=== PATIENT | female | born 1940 | race Hispanic/Latino ===

== ENCOUNTER 2021-01-25 20:22 | Observation (INO) | payer MEDICARE ==
[2021-01-26 01:14] VITALS: BMI 22.8
[2021-01-26] MEDS ORDERED: Acetaminophen 325 MG TAB PO PRN (01:18)
[2021-01-26] MEDS ORDERED: Ondansetron PF 4 MG/2 ML Vial IVP PRN (01:18)
[2021-01-26] MEDS ORDERED: Ondansetron ODT 4 MG TAB PO PRN (01:18)
[2021-01-26] MEDS ORDERED: Acetaminophen 650 MG Suppository PR PRN (01:18)
[2021-01-26] MEDS ORDERED: hydrALAZINE 20 MG/ML VIAL SLOW IVP PRN (01:26)
[2021-01-26 02:23] LABS: Anion Gap 12 mmol/L (10-20); BUN (Urea Nitrogen) 13 mg/dL (9.8-20.1); Calc. Creatinine Clearance 41 mL/min (70-130); Carbon Dioxide 26 mmol/L (23-31); Chloride 98 mmol/L (98-107); Glucose 107 mg/dL (83-110); Potassium 3.8 mmol/L (3.5-5.1); Sodium 132 mmol/L (136-145)
[2021-01-26 05:23] LABS: Anion Gap 9 mmol/L (10-20); BUN (Urea Nitrogen) 12 mg/dL (9.8-20.1); Calc. Creatinine Clearance 43 mL/min (70-130); Calcium 9.7 mg/dL (7.8-10.44); Carbon Dioxide 29 mmol/L (23-31); Chloride 100 mmol/L (98-107); Glucose 93 mg/dL (83-110); Potassium 4.1 mmol/L (3.5-5.1); Sodium 134 mmol/L (136-145)
[2021-01-26] MEDS ORDERED: Amlodipine 5 MG TAB PO SCH ×2 (09:00)
[2021-01-26] MEDS: Montelukast Sodium 10 mg Tablet PO SCH (09:32)
[2021-01-26] MEDS: Losartan 25 MG TAB PO SCH (09:32)
[2021-01-26] MEDS ORDERED: NIFEdipine XL 30 MG TAB PO SCH ×2 (11:30→14:51)
[2021-01-26] MEDS ORDERED: Atorvastatin Calcium 10 MG TAB PO SCH (21:00)
[2021-01-27 08:25] LABS: Anion Gap 13 mmol/L (10-20); BUN (Urea Nitrogen) 15 mg/dL (9.8-20.1); Calc. Creatinine Clearance 33 mL/min (70-130); Calcium 9.8 mg/dL (7.8-10.44); Carbon Dioxide 25 mmol/L (23-31); Chloride 95 mmol/L (98-107); Glucose 123 mg/dL (83-110); Potassium 3.7 mmol/L (3.5-5.1); Sodium 129 mmol/L (136-145)
[2021-01-27] MEDS ORDERED: Lactated Ringer's 500 ML IV SCH (08:30)
[2021-01-27] MEDS ORDERED: NIFEdipine XL 30 MG TAB PO SCH ×2 (09:00)
[2021-01-27] MEDS: Montelukast Sodium 10 mg Tablet PO SCH (09:32)
[2021-01-27] MEDS: Losartan 25 MG TAB PO SCH (09:32)
[2021-01-27 12:41] LABS: Anion Gap 14 mmol/L (10-20); BUN (Urea Nitrogen) 16 mg/dL (9.8-20.1); Calc. Creatinine Clearance 36 mL/min (70-130); Carbon Dioxide 23 mmol/L (23-31); Chloride 94 mmol/L (98-107); Glucose 104 mg/dL (83-110); Potassium 3.9 mmol/L (3.5-5.1); Sodium 127 mmol/L (136-145)
[2021-01-27] MEDS ORDERED: Lactated Ringer's 1,000 ML IV SCH (13:30)
[2021-01-27 16:44] LABS: Anion Gap 13 mmol/L (10-20); BUN (Urea Nitrogen) 17 mg/dL (9.8-20.1); Calc. Creatinine Clearance 38 mL/min (70-130); Calcium 9.7 mg/dL (7.8-10.44); Carbon Dioxide 25 mmol/L (23-31); Chloride 97 mmol/L (98-107); Glucose 115 mg/dL (83-110); Potassium 3.7 mmol/L (3.5-5.1); Sodium 131 mmol/L (136-145)
[2021-01-27 18:35] VITALS: BP 130/61; TEMP 97.7
== END 2021-01-27 18:38 | disposition home or self-care (01) ==
LOC: 2NO 20:22 → INTOOBSV 20:22
PROVIDERS: ADMIT Student in an Organized Health Care Education/Training Program; ATTEND Student in an Organized Health Care Education/Training Program
DX: E87.1 Hypo-osmolality and hyponatremia (principal); I16.0 Hypertensive urgency; I10 Essential (primary) hypertension; D53.9 Nutritional anemia, unspecified; J44.9 Chronic obstructive pulmonary disease, unspecified; E78.5 Hyperlipidemia, unspecified; Z66 Do not resuscitate; Z79.899 Other long term (current) drug therapy
CPT/HCPCS: 80048 ×4; 83930; 83935; 84133; 84300; 84443; 96374; G0378 ×2; 36415; J0360; J7120

== ENCOUNTER 2021-06-28 15:14 | Observation (INO) | payer MEDICARE ==
[2021-06-28 15:44] LABS: #Eosinphils 0.1 thou/uL (0.0-0.7); #Lymphocytes 1.3 thou/uL (1.20-3.40); #Monocytes 0.8 thou/uL (0.11-0.59); #Neutrophils 5.2 thou/uL (1.40-6.50); %Basophils 0.5 % (0.0-1.0); %Eosinophils 1.3 % (0.0-10.0); %Lymphocytes 17.3 % (21.0-51.0); %Monocytes 10.8 % (0.0-10.0); Hemoglobin 13.1 g/dL (12.0-16.0); Mean Corpuscular HGB CONC 33.2 g/dL (32.0-36.0); Mean Corpuscular Hemoglobin 33.9 pg (27.0-31.0); Mean Platelet Volume 5.5 fL (7.4-10.4); Platelet Count 395 thou/uL (130-400); RBC Distribution Width 11.8 % (11.5-14.5); Red Blood Cell (RBC) Count 3.88 mill/uL (4.20-5.40); White Blood Cell (WBC) Count 7.4 thou/uL (4.8-10.8)
[2021-06-28] MEDS ORDERED: Nitroglycerin 2% Ointment 1 INCH/1 GM Packet ONE (15:46)
[2021-06-28 16:06] LABS: ALT (SGPT) 16 U/L (8-55); AST (SGOT) 25 U/L (5-34); Albumin 4.4 g/dL (3.4-4.8); Alkaline Phosphatase 82 U/L (40-110); Anion Gap 14 mmol/L (10-20); BUN (Urea Nitrogen) 8 mg/dL (9.8-20.1); Bilirubin, Total 0.3 mg/dL (0.2-1.2); Calc. Creatinine Clearance 0 mL/min (70-130); Calcium 9.8 mg/dL (7.8-10.44); Carbon Dioxide 24 mmol/L (23-31); Chloride 96 mmol/L (98-107); Globulin 3.7 g/dL (2.4-3.5); Glucose 109 mg/dL (83-110); Potassium 4.2 mmol/L (3.5-5.1); Protein, Total 8.1 g/dL (5.8-8.1); Sodium 130 mmol/L (136-145)
[2021-06-28] MEDS ORDERED: Acetaminophen 325 MG TAB PO PRN (18:36)
[2021-06-28] MEDS ORDERED: Ondansetron PF 4 MG/2 ML Vial IVP PRN (18:36)
[2021-06-28] MEDS ORDERED: Nitroglycerin 0.4 MG TAB (25 Tab Bottle) SL PRN ×2 (18:36→18:56)
[2021-06-28] MEDS ORDERED: Aspirin Chewable 81 MG TAB PO SCH (18:45)
[2021-06-28] MEDS ORDERED: Labetalol HCl 100 MG/20 ML VIAL SLOW IVP PRN (18:55)
[2021-06-28 19:22] LABS: Troponin I 0.023 ng/mL (< 0.028)
[2021-06-28 20:31] VITALS: BMI 18.9
[2021-06-28] MEDS: Atorvastatin Calcium 10 MG TAB PO SCH (21:04)
[2021-06-28] MEDS: hydrALAZINE 20 MG/ML VIAL SLOW IVP PRN (21:04)
[2021-06-28 22:54] LABS: Troponin I 0.038 ng/mL (< 0.028)
[2021-06-28] MEDS ORDERED: Montelukast Sodium 10 mg Tablet PO SCH (23:00)
[2021-06-28] MEDS ORDERED: NIFEdipine XL 30 MG TAB PO SCH (23:00)
[2021-06-28] MEDS ORDERED: NIFEdipine XL 90 MG TAB PO SCH (23:30)
[2021-06-29 04:58] LABS: #Eosinphils 0.1 thou/uL (0.0-0.7); #Lymphocytes 1.4 thou/uL (1.20-3.40); #Monocytes 0.7 thou/uL (0.11-0.59); #Neutrophils 6.1 thou/uL (1.40-6.50); %Basophils 0.6 % (0.0-1.0); %Eosinophils 1.5 % (0.0-10.0); %Monocytes 8.3 % (0.0-10.0); %Neutrophils 72.6 % (42.0-75.0); Hemoglobin 11.8 g/dL (12.0-16.0); Mean Corpuscular HGB CONC 34.3 g/dL (32.0-36.0); Mean Corpuscular Hemoglobin 35.1 pg (27.0-31.0); Mean Platelet Volume 5.4 fL (7.4-10.4); Platelet Count 386 thou/uL (130-400); Red Blood Cell (RBC) Count 3.37 mill/uL (4.20-5.40); White Blood Cell (WBC) Count 8.4 thou/uL (4.8-10.8)
[2021-06-29 05:20] LABS: ALT (SGPT) 13 U/L (8-55); AST (SGOT) 21 U/L (5-34); Albumin 3.6 g/dL (3.4-4.8); Alkaline Phosphatase 61 U/L (40-110); Anion Gap 10 mmol/L (10-20); BUN (Urea Nitrogen) 8 mg/dL (9.8-20.1); Calc. Creatinine Clearance 38 mL/min (70-130); Calcium 9.6 mg/dL (7.8-10.44); Carbon Dioxide 24 mmol/L (23-31); Cardiac Risk 3.5 (Less than 4.5); Chloride 98 mmol/L (98-107); Cholesterol 153 mg/dl (< 200 Desired); Globulin 3.5 g/dL (2.4-3.5); Glucose 108 mg/dL (83-110); HDL Cholesterol 44 mg/dL (>60 Neg Risk); LDL Cholesterol, Calculated 96 mg/dL; Potassium 3.9 mmol/L (3.5-5.1); Protein, Total 7.1 g/dL (5.8-8.1); Sodium 128 mmol/L (136-145); Triglycerides 67 mg/dL (Less than 150)
[2021-06-29 05:21] LABS: Bilirubin, Total 0.4 mg/dL (0.2-1.2)
[2021-06-29] MEDS: Budesonide 0.5 MG/2 ML NEB NEB SCH ×2 (06:50→18:53)
[2021-06-29] MEDS ORDERED: Montelukast Sodium 10 mg Tablet PO SCH ×2 (09:00→21:00)
[2021-06-29] MEDS ORDERED: NIFEdipine XL 30 MG TAB PO SCH ×2 (09:00→21:00)
[2021-06-29] MEDS ORDERED: Regadenoson 0.4 MG/5 ML SYRINGE ONE (09:18)
[2021-06-29] MEDS: Losartan 25 MG TAB PO SCH (09:24)
[2021-06-29] MEDS: Enoxaparin Sodium 30 MG/0.3 ML SYRINGE SC SCH (09:24)
[2021-06-29] MEDS ORDERED: Iopamidol 370 76% 100 ML VIAL ONE (10:21)
[2021-06-29 11:50] LABS: Troponin I 0.024 ng/mL (< 0.028)
[2021-06-29 12:18] LABS: SARS-CoV-2 PCR by NAA Not Detected (NotDetected)
[2021-06-29] MEDS: hydrALAZINE 20 MG/ML VIAL SLOW IVP PRN (18:22)
[2021-06-29] MEDS: Atorvastatin Calcium 10 MG TAB PO SCH (20:10)
[2021-06-29] MEDS ORDERED: NIFEdipine XL 90 MG TAB PO SCH (21:00)
[2021-06-30 05:19] LABS: Anion Gap 14 mmol/L (10-20); BUN (Urea Nitrogen) 14 mg/dL (9.8-20.1); Calc. Creatinine Clearance 27 mL/min (70-130); Calcium 9.8 mg/dL (7.8-10.44); Carbon Dioxide 23 mmol/L (23-31); Chloride 96 mmol/L (98-107); Glucose 108 mg/dL (83-110); Potassium 4.2 mmol/L (3.5-5.1); Sodium 129 mmol/L (136-145)
[2021-06-30 07:34] VITALS: BP 139/61; TEMP 98.2
[2021-06-30] MEDS: Enoxaparin Sodium 30 MG/0.3 ML SYRINGE SC SCH (08:34)
[2021-06-30] MEDS: Losartan 25 MG TAB PO SCH (08:34)
[2021-06-30] MEDS: Budesonide 0.5 MG/2 ML NEB NEB SCH (10:43)
== END 2021-06-30 11:35 | disposition home or self-care (01) ==
LOC: ERS 15:14 → 2SW 18:36
PROVIDERS: ADMIT Internal Medicine; ATTEND Internal Medicine
DX: R07.89 Other chest pain (principal); R06.09 Other forms of dyspnea; I16.0 Hypertensive urgency; I10 Essential (primary) hypertension; E87.1 Hypo-osmolality and hyponatremia; J43.9 Emphysema, unspecified; J84.10 Pulmonary fibrosis, unspecified; E78.5 Hyperlipidemia, unspecified; K21.9 Gastro-esophageal reflux disease without esophagitis; Q25.46 Tortuous aortic arch; Z66 Do not resuscitate; Z79.899 Other long term (current) drug therapy; Z88.7 Allergy status to serum and vaccine; Z20.822 Contact with and (suspected) exposure to COVID-19
CPT/HCPCS: 71045 ×2; 71275; 78452; 80048; 80053 ×2; 80061; 83735; 83880; 84484 ×3; 85025 ×2; 85379; 93005; 93017; 93970; 94640 ×3; 94760; 99285; A9500; U0003; U0005; 36415; 96372; 96374; G0378; J0360; J1650; J2785; J7626; Q9967

== ENCOUNTER 2024-11-15 13:21 | Emergency (ER) | payer MEDICARE ==
[2024-11-15 15:20] LABS: #Basophils 0.04 10x3/uL (0.0-0.2); #Eosinophils 0.04 10x3/uL (0.0-0.7); #Monocytes 0.73 10x3/uL (0.11-0.59); #Neutrophils 7.69 10x3/uL (1.40-6.50); %Basophils 0.4 % (0.0-1.0); %Eosinophils 0.4 % (0.0-10.0); %Lymphocytes 11.3 % (21.0-51.0); %Monocytes 7.6 % (0.0-10.0); %Neutrophils 80.1 % (42.0-75.0); Hematocrit 38.0 % (36.0-47.0); Hemoglobin 13.0 g/dL (12.0-16.0); Mean Corpuscular Hemoglobin 33.4 pg (27.0-31.0); Mean Corpuscular Volume 97.7 fL (78.0-98.0); Platelet Count 325 10x3/uL (130-400); Red Blood Cell (RBC) Count 3.89 mill/uL (4.20-5.40); White Blood Cell (WBC) Count 9.61 10x3/uL (4.8-10.8)
[2024-11-15 15:42] LABS: ALT (SGPT) 16 U/L (Less than 34); AST (SGOT) 32 U/L (11-34); Albumin 4.0 g/dL (3.1-4.5); Alkaline Phosphatase 109 U/L (40-110); Anion Gap 15 mmol/L (10-20); BUN (Urea Nitrogen) 11 mg/dL (9.8-20.1); Bilirubin, Total 0.4 mg/dL (0.3-1.2); Calc. Creatinine Clearance 0 mL/min (70-130); Calcium 10.1 mg/dL (7.8-10.44); Carbon Dioxide 25 mmol/L (23-31); Chloride 93 mmol/L (98-107); Globulin 4.6 g/dL (2.4-3.5); Glucose 119 mg/dL (83-110); Magnesium 2.0 mg/dL (1.6-2.6); Potassium 4.0 mmol/L (3.5-5.1); Sodium 129 mmol/L (136-145)
== END 2024-11-15 17:25 ==
LOC: ERS 13:21
DX: E87.1 Hypo-osmolality and hyponatremia (principal); I10 Essential (primary) hypertension; J44.9 Chronic obstructive pulmonary disease, unspecified; K21.9 Gastro-esophageal reflux disease without esophagitis; Z79.899 Other long term (current) drug therapy; Z79.51 Long term (current) use of inhaled steroids
CPT/HCPCS: 71045; 80053; 83735; 83880; 85025; 87428